=== PATIENT | male | born 1975 | race African-American/Black ===

== ENCOUNTER 2019-05-03 20:41 | Emergency (ER) | payer SELFPAY ==
[~2019-05-03] VITALS: Ht 172.7 cm; Wt 79.5 kg
[2019-05-03 20:42] VITALS: BP 142/89
== END 2019-05-03 20:53 | disposition left against medical advice (07) ==
LOC: M ED 20:41
DX: Z53.21 Procedure and treatment not carried out due to patient leaving prior to being seen by health care provider (principal)